=== PATIENT | male | born 1990 | race Hispanic/Latino ===

== ENCOUNTER 2021-11-09 18:16 | Emergency (ER) | payer OTHER ==
[~2021-11-09] VITALS: Ht 165.1 cm; Wt 86.2 kg
[2021-11-09 18:39] LABS: PLATELET COUNT 217 K/uL (142-355)
[2021-11-09 18:49] LABS: POTASSIUM 3.6 mmol/L (3.6-5.2)
[2021-11-09 18:58] LABS: PARTIAL THROMBOPLASTIN TIME 28.2 SECONDS (24.5-33.6)
[2021-11-09 21:25] VITALS: BP 135/81; TEMP 98.5
== END 2021-11-09 21:30 | disposition home or self-care (01) ==
LOC: ED 18:16
PROVIDERS: Hospitalist
DX: N20.0 Calculus of kidney (principal); N13.8 Other obstructive and reflux uropathy; Z87.442 Personal history of urinary calculi
CPT/HCPCS: 36415; 80053; 81000; 83690; 85027; 85610; 85730; 96360; 96375; 99284; J2270; J2405; Q9963